=== PATIENT | female | born 1995 | race Caucasian/White ===

== ENCOUNTER 2022-01-16 09:57 | Inpatient (IN) ==
[2022-01-16] MEDS ORDERED: TRANEXAMIC ACID 1,000 MG in SODIUM CHLORIDE 0.9% 100 ML IV PRN (10:29)
[2022-01-16] MEDS ORDERED: METHYLERGONOVINE 0.2 MG/1 ML AMP IM PRN (10:29)
[2022-01-16] MEDS ORDERED: FAMOTIDINE 20 MG/2 ML VIAL IV ONE (10:29)
[2022-01-16] MEDS ORDERED: CARBOPROST TROMETHAMINE 250 MCG/ML AMP IM PRN (10:29)
[2022-01-16] MEDS ORDERED: CITRIC ACID/SODIUM CITRATE 30 ML UDCUP PO ONE (10:29)
[2022-01-16] MEDS ORDERED: miSOPROStoL 200 MCG TABLET RECTAL PRN (10:29)
[2022-01-16] MEDS ORDERED: ceFAZolin 2,000 MG/50 ML DUPLEX IV ONE (10:29)
[2022-01-16] MEDS ORDERED: OXYTOCIN/LR 20 UNIT/1,000 ML BAG IV ONE ×2 (10:29→15:50)
[2022-01-16] MEDS ORDERED: LACTATED RINGERS 1,000 ML IV SCH (10:30)
[2022-01-16] MEDS ORDERED: LACTATED RINGERS 1,000 ML IV ONE ×2 (10:38→15:31)
[2022-01-16 10:50] LABS: Basophils # 0.1 10*3/uL (0.0-0.2); Basophils % 0.4 % (0.0-0.8); Eosinophils % 0.3 % (0.00-10.9); Hematocrit 39.2 VOL% (35.7-47.0); Hemoglobin 12.7 GM/DL (12.0-16.0); Immature Granulocytes % 2.8 %; Immature Granulocytes Absolute 0.31 #; Lymphocytes # 2.7 10*3/uL (1.4-4.0); Lymphocytes % 23.9 % (21.3-54.2); Mean Corpuscular HGB Conc 32.4 GM/DL (32-36); Mean Corpuscular Volume 89.3 FL (87-102); Mean Platelet Volume 11.5 FL (9.6-12.0); Monocytes # 0.9 10*3/uL (0.11-0.8); NRBC # 0.08 10*3/uL; Neutrophils % 64.6 % (38.7-73.9); Platelet Count 294 T/CUMM (130-400); Red Blood Count 4.39 MC/CUMM (3.8-5.5); Red Cell Distribution Width 15.9 % (9.3-17.3); White Blood Count 11.1 T/CUMM (4-12)
[2022-01-16] MEDS ORDERED: ONDANSETRON 4 MG/2 ML VIAL IV PRN ×2 (11:05→15:50)
[2022-01-16 11:17] LABS: Bilirubin,Total 0.4 MG/DL (0.20-1.00); Calcium 13.2 MG/DL (8.5-10.1); Potassium 4.1 MMOL/L (3.5-5.1); Total Protein 6.2 G/DL (6.4-8.2)
[2022-01-16] MEDS ORDERED: BUPIVACAINE SPINAL 0.75% 2 ML AMP SPINAL ONE (14:01)
[2022-01-16] MEDS ORDERED: buprenorphine HCL 0.3 MG/ML VIAL ONE (14:01)
[2022-01-16] MEDS ORDERED: METOCLOPRAMIDE 10 MG/2 ML VIAL ONE (14:01)
[2022-01-16] MEDS ORDERED: ONDANSETRON 4 MG/2 ML VIAL ONE (14:01)
[2022-01-16] MEDS ORDERED: TRANEXAMIC ACID 1,000 MG/10 ML VIAL ONE (14:02)
[2022-01-16] MEDS ORDERED: METHYLERGONOVINE 0.2 MG/1 ML AMP ONE (14:03)
[2022-01-16] MEDS ORDERED: CARBOPROST TROMETHAMINE 250 MCG/ML AMP IM ONE (14:03)
[2022-01-16] MEDS ORDERED: OXYTOCIN 10 UNIT/ML VIAL ONE (14:04)
[2022-01-16] MEDS ORDERED: KETAMINE 500 MG/10 ML VIAL ONE (14:31)
[2022-01-16] MEDS ORDERED: fentaNYL 250 MCG/5 ML VIAL ONE (14:50)
[2022-01-16] MEDS ORDERED: MIDAZOLAM 2 MG/2 ML VIAL ONE (14:50)
[2022-01-16] MEDS ORDERED: NEOSTIGMINE 10 MG/10 ML VIAL ONE (15:16)
[2022-01-16] MEDS ORDERED: GLYCOPYRROLATE 0.4 MG/2 ML VIAL ONE (15:16)
[2022-01-16 15:18] LABS: Cord Venous Blood HCO3 21.6 MMOL/L; Cord Venous Blood PCO2 47.3 MMHG; Cord Venous Blood PO2 41.1
[2022-01-16 15:20] LABS: Bacteria,Urine Occasional /HPF (Few); Bilirubin,Urine Negative (Negative); Blood, Urine Negative (Negative); Glucose,Urine (UA) Negative (Negative); Hyaline Casts,Urine 1 /LPF (0-3); Ketones,Urine Negative (Negative); Mucus,Urine Occasional /LPF (Occasional); Nitrite,Urine Negative (Negative); Protein,Urine >=300 mg/dL (Negative); RBC,Urine 1 /HPF (0-4); Urine Appearance Clear (Clear); Urine Color Yellow (Yellow); Urine Specific Gravity 1.025 (1.001-1.035); Urine Urobilinogen 0.2 eU/dL (<2.0)
[2022-01-16 15:28] LABS: Cord Arterial Blood HCO3 20.5 MMOL/L
[2022-01-16] MEDS ORDERED: propofoL 200 MG/20 ML VIAL IV ONE (15:30)
[2022-01-16] MEDS ORDERED: SUCCINYLCHOLINE 200 MG/10 ML VIAL ONE (15:30)
[2022-01-16] MEDS ORDERED: ACETAMINOPHEN INJ 1,000 MG/100 ML VIAL IV ONE (15:30)
[2022-01-16] MEDS ORDERED: ROCURONIUM 50 MG/5 ML VIAL IV ONE (15:31)
[2022-01-16] MEDS ORDERED: LABETALOL 20 MG/4 ML SYRINGE IV ONE (15:31)
[2022-01-16 15:32] LABS: Cord Venous Blood HCO3 21.6 MMOL/L; Cord Venous Blood PCO2 45.6 MMHG
[2022-01-16] MEDS ORDERED: HYDROmorphone 1 MG/1 ML SYRINGE ONE (15:34)
[2022-01-16] MEDS ORDERED: RHO(D) IMMUNE GLOBULIN 300 MCG SYRINGE IM ONE (15:50)
[2022-01-16] MEDS ORDERED: ACETAMINOPHEN 325 MG TABLET PO PRN (15:50)
[2022-01-16 15:53] LABS: Barbiturates Screen,Urine Negative (Negative); Benzodiazepines Screen,Urine Negative (Negative); Cannabinoid Screen,Urine Negative (Negative); Opiate Screen,Urine Negative (Negative); Phencyclidine Screen,Urine Negative (Negative)
[2022-01-16] MEDS ORDERED: OXYTOCIN 10 UNIT/ML VIAL IM ONE (16:19)
[2022-01-16] MEDS ORDERED: NIFEdipine 10 MG CAPSULE PO ONE ×3 (16:30→16:52)
[2022-01-16] MEDS ORDERED: OXYTOCIN/LR 30 UNIT/1,000 ML BAG IV ONE (16:35)
[2022-01-16] MEDS: KETOROLAC 30 MG/1 ML VIAL IV SCH (18:34)
[2022-01-16] MEDS: DOCUSATE SODIUM 100 MG CAPSULE PO SCH (20:25)
[2022-01-16] MEDS ORDERED: ACETAMINOPHEN 500 MG TABLET PO SCH (22:00)
[2022-01-17 00:23] LABS: Basophils # 0.1 10*3/uL (0.0-0.2); Basophils % 0.3 % (0.0-0.8); Eosinophils % 0.2 % (0.00-10.9); Hematocrit 32.8 VOL% (35.7-47.0); Hemoglobin 10.4 GM/DL (12.0-16.0); Immature Granulocytes % 2.3 %; Immature Granulocytes Absolute 0.36 #; Lymphocytes # 2.9 10*3/uL (1.4-4.0); Mean Corpuscular HGB Conc 31.7 GM/DL (32-36); Mean Corpuscular Volume 93.2 FL (87-102); Mean Platelet Volume 11.8 FL (9.6-12.0); Monocytes # 1.2 10*3/uL (0.11-0.8); Monocytes % 7.6 % (1.7-12.7); NRBC # 0.04 10*3/uL; Neutrophils % 70.6 % (38.7-73.9); Platelet Count 302 T/CUMM (130-400); Red Blood Count 3.52 MC/CUMM (3.8-5.5); Red Cell Distribution Width 16.1 % (9.3-17.3); White Blood Count 15.3 T/CUMM (4-12)
[2022-01-17] MEDS: LACTATED RINGERS 1,000 ML IV SCH ×2 (00:30→06:18)
[2022-01-17] MEDS: KETOROLAC 30 MG/1 ML VIAL IV SCH ×3 (00:30→14:39)
[2022-01-17] MEDS: oxyCODONE/ACETAMINOPHEN 5-325 MG TABLET PO PRN ×5 (00:45→20:09)
[2022-01-17] MEDS: DOCUSATE SODIUM 100 MG CAPSULE PO SCH (08:19)
[2022-01-17] MEDS: MULTIVITAMIN (PRENATAL) TABLET PO SCH (08:20)
[2022-01-17] MEDS: MAGNESIUM HYDROXIDE SUSP 30 ML UDCUP PO PRN (08:20)
[2022-01-17] MEDS: SIMETHICONE CHEW 80 MG TABLET PO PRN (08:20)
[2022-01-17] MEDS: METOCLOPRAMIDE 10 MG TABLET PO SCH ×2 (14:21→23:00)
[2022-01-18] MEDS: DOCUSATE SODIUM 100 MG CAPSULE PO SCH ×4 (00:37→20:47)
[2022-01-18] MEDS: oxyCODONE/ACETAMINOPHEN 5-325 MG TABLET PO PRN ×5 (03:33→20:48)
[2022-01-18] MEDS: METOCLOPRAMIDE 10 MG TABLET PO SCH ×3 (06:47→21:07)
[2022-01-18] MEDS: SIMETHICONE CHEW 80 MG TABLET PO PRN (07:51)
[2022-01-18] MEDS: IBUPROFEN 800 MG TABLET PO PRN ×2 (07:52→17:53)
[2022-01-18] MEDS: MULTIVITAMIN (PRENATAL) TABLET PO SCH ×2 (07:53→14:23)
[2022-01-19] MEDS: oxyCODONE/ACETAMINOPHEN 5-325 MG TABLET PO PRN ×3 (01:31→11:09)
[2022-01-19] MEDS: METOCLOPRAMIDE 10 MG TABLET PO SCH ×2 (06:29→08:21)
[2022-01-19] MEDS: DOCUSATE SODIUM 100 MG CAPSULE PO SCH (08:21)
[2022-01-19] MEDS: MULTIVITAMIN (PRENATAL) TABLET PO SCH (08:21)
[2022-01-19] MEDS: MAGNESIUM HYDROXIDE SUSP 30 ML UDCUP PO PRN (08:22)
[2022-01-19 08:43] VITALS: BP 138/75
[2022-01-19] MEDS: IBUPROFEN 800 MG TABLET PO PRN (11:09)
[2022-01-19] MEDS ORDERED: DIPH/TET/ACEL PERT BOOSTER VACCINE 0.5 ML VIAL IM ONE (13:10)
== END 2022-01-19 13:52 | disposition home or self-care (01) | DRG 540 ==
LOC: N.LD 09:57 → N.OB 21:20
PROVIDERS: ADMIT Obstetrics & Gynecology; ATTEND Obstetrics & Gynecology
PROC: LDCSECT (ICD-10-PCS; 2022-01-16 14:00)